=== PATIENT | female | born 1945 | race Caucasian/White ===

== ENCOUNTER 2022-08-08 13:45 | Outpatient (CLI) | payer MEDICARE, BC, SELFPAY ==
[2022-08-08 10:50] LABS: Albumin* 4.6 g/dL (3.3-5.0); Chloride* 103 mmol/L (96-114); Sodium* 140 mmol/L (135-149)
[2022-08-08 10:52] LABS: Carbon Dioxide* 33 mmol/L (20-32); Cholesterol* 261 mg/dL (90-199); Creatinine* 0.6 mg/dL (0.5-1.5); Estimated Glomerular Filt Rate 94 ml/min
[2022-08-08 10:53] LABS: Alanine Aminotransferase* 28 U/L (4-35); Alkaline Phosphatase* 73 U/L (40-150); Aspartate Amino Transferase* 29 U/L (12-35); Bilirubin Total* 0.7 mg/dL (0.1-1.5); Blood Urea Nitrogen* 17 mg/dL (7-30); Calcium* 9.5 mg/dL (8.4-10.6); Glucose* 88 mg/dL (60-115); Total Protein* 7.1 g/dL (6.0-8.3); Triglycerides* 123 mg/dL (40-149); Vitamin D 25 Hydroxy* 41 ng/mL (30-80)
[2022-08-08 10:54] LABS: HDL Cholesterol* 77 mg/dL (>=50); LDL Cholesterol Calculated 159 mg/dL (<100)
== END 2022-08-08 13:46 | disposition home or self-care (01) ==
PROVIDERS: PCP Family Medicine; Visit Provider Family Medicine
DX: Z00.00 Encounter for general adult medical examination without abnormal findings (principal); E78.5 Hyperlipidemia, unspecified; M85.80 Other specified disorders of bone density and structure, unspecified site
CPT/HCPCS: 80053; 80061; 82306

== ENCOUNTER 2023-08-22 08:26 | Outpatient (CLI) | payer MEDICARE, BC, SELFPAY ==
--- OUTSIDE RECORDS SUMMARY | 2023-08-29 09:17 | XMS_ITS | Clinical Summary ---
Author Name Unknown Organization [employer] [facility] [employer] Address [place], [place] [address] Care Team Providers Care Detailer Name Role Phone Kieran Mansfield MD Primary Care Provider [phone] Allergies No known active allergies Medications Medication Sig Dispensed Refills Start Date End Date Status calcium carbonate-vit D3, 600 mg-400 units, (CALCIUM-VITAMIN D) tablet Take 1 tablet by mouth once daily with a meal. 0 Active aspirin (ECOTRIN) 81 mg enteric coated tablet Take 81 mg by mouth once daily with a meal. 0 Active Social History Tobacco Use Types Packs/Day Years Used Date Smoking Tobacco: Never Assessed Sex and Gender Information Value Date Recorded Sex Assigned at Not on file Gender Identity Not on file Sexual Orientation Not on file Obstetrics History Last Filed Vital Signs Vital Sign Reading Time Taken Comments Blood Pressure 121/59 05/24/2015 7:27 PM CDT Pulse 112 05/24/2015 7:27 PM CDT Temperature 37.4 ??C (99.3 ??F) 05/24/2015 7:27 PM CD T Respiratory Rate 16 05/24/2015 2:14 PM CDT Oxygen Saturation 98% 05/24/2015 7:27 PM CDT Inhaled Oxygen Concentration - - Weight 50.8 kg (112 lb) 05/24/2015 2:14 PM CDT Height 165.1 cm (5' 5) 05/24/2015 2:14 PM CDT Body Mass Index 18.64 05/24/2015 2:14 PM CDT Plan of Treatment Health Maintenance Due Date Last Done Comments COVID-19 vaccine series (#1) 04[birth year]17/1946 Tdap 1958 Depression screening for age 12+ 1959 BMI (ht and wt on same day) for age 18+ 1965 Hepatitis C screening for age 18-79 1965 Tetanus booster 1967 Colonoscopy through age 75 1992 Lipids for age 45-75 1992 Zoster (shingles) series for age 50+ (1 of 2) 10/18/18 98 DEXA/DXA scan for age 65+ 2012 Pneumococcal series for age 65+ (1 of 1 - PCV) 013 Influenza for age 65+ 04/21/2023 Medical Devices Implanted Type Area Stiff Leg Operator Device Identifier Shelf Expiration Date Model / Serial / Lot [id number] sorting machine attendant Tissue 250cc [id number] [[id number]] Implanted:Qty: 1 on 11/20/2007 at [facility] Explanted:at [facility] (Quantity not on file) Right: Breast [employer] [id number] / [id number] Implanted:Qty: 1 on 11/20/2007 at [facility] Explanted:at [facility] (Quantity not on file) Right: Breast LIFECELL JW [id number] / [id number] / Description:STRATTICE RECON TISSUE MATRIX 5X16 [id number] 2implnt Mammary Gel 175cc [id number] [[id number]] Implanted:Qty: 1 on 03/11/2008 at [facility] Explanted:at [facility] (Quantity not on file) Right: Breast [employer] [id number] # / [id number] Advance Directives Documents on File Type Date Recorded Patient Demand Generation Manager Expl anation Healthcare Directive 02/12/2019 9:28 AM Latest Code Status on File Code Status Date Activated Date Inactivated Comments Full Code 08/10/2012 6:21 AM 08/10/2012 10:33 AM Code Status History Code Status Date Activated Date Inactivated Comments Full Code 03/11/2008 6:32 AM 03/11/2008 12:14 PM Full Code 11/20/2007 7:49 AM 11/22/2007 6:08 PM Care Teams Detailer Relationship Specialty Start Date End Date Kieran Mansfield MD [address] [place] [id number] PCP - General 10/24/07
--- OUTSIDE RECORDS SUMMARY | 2023-08-29 09:17 | XMS_ITS | Referral Summary ---
Author Name Unknown Organization [facility] Address [address] [place] [address] Care Team Providers Care Last Sorter Name Role Phone Fiona Noriega MD Primary Care Provider + Allergies No known active allergies Medications Medication Sig Dispensed Refills Start Date End Date Status calcium-vitamin D (CALCIUM 600 + D) 600-400 MG-UNIT per tablet Take 1 tablet by mouth daily 0 Active aspirin 81 MG chewable tablet Take 81 mg by mouth daily 0 Active Active Problems No known active problems Social History Tobacco Use Types Packs/Day Years Used Date Smoking Tobacco: Never Smokeless Tobacco: Never Alcohol Use Standard Drinks/Week Comments No 0 (1 standard drink = 0.6 oz pur e alcohol) Sex and Gender Information Value Date Recorded Sex Assigned at Not on file Gender Identity Not on file Sexual Orientation Not on file Last Filed Vital Signs Vital Sign Reading Time Taken Comments Blood Pressure 105/62 06/15/2017 8:34 AM CDT Pulse 89 02/02/2017 8:34 AM CDT Temperature 36.1 ??C (97 ??F) 06/15/2017 6:44 AM CDT Respiratory Rate 14 06/15/2017 8:34 AM CDT Oxygen Saturation 99% 06/15/2017 8:34 AM CDT Inhaled Oxygen Concentration - - Weight 49.9 kg (110 lb) 06/13/2017 11:00 AM CDT Height 166.4 cm (5' 5.5) 06/13/2017 11:00 AM CD T Body Mass Index 18.03 06/13/2017 11:00 AM CDT Plan of Treatment Not on file Medical Devices Implanted Type Area Deputy Assessor Device Identifier Shelf Expiration Date Model / Serial / Lot Eye Imp Iol Isauro Pcl Tecnis [id number] 18.0 Implanted:Qty : 1 on 02/02/2017 by Dmitriy Spann MD at [facility] Lens/Eye Implant Right: Eye [employer] 10/12/2020 ZCB00 18.0 / [id number] / Eye Imp Iol Isauro Pcl Tecnis Zcb00 18.5 Implanted:Qty : 1 on 06/15/2017 by Dmitriy Spann MD at [facility] Lens/Eye Implant Left: Eye [employer] OPT 12/31/2020 ZCB00 18.5 / [id number] / Care Teams Last Sorter Relationship Specialty Start Date End Date Fiona Noriega MD [facility] [address] [place] [address] PCP - General Family Practice 01/13/17
--- OUTSIDE RECORDS SUMMARY | 2023-08-29 09:17 | XMS_ITS | Encounter Summary ---
Author Name Unknown Organization [facility] Address [address] [place] [address] Care Team Providers Care Yield Engineer Name Role Phone Fiona Noriega MD Primary Care Provider + Encounter Details Date Type Department Care Team (Late st Contact Info) Description 11/20/[address] [address] Abstract, Provider ABB-NW: RIGHT MASTECTOMY (Primary Dx) Social History Tobacco Use Types Packs/Day Years Used Date Smoking Tobacco: Never Smokeless Tobacco: Never Alcohol Use Standard Drinks/Week Comments No 0 (1 standard drink = 0.6 oz pur e alcohol) Sex and Gender Information Value Date Recorded Sex Assigned at Not on file Gender Identity Not on file Sexual Orientation Not on file documented as of this encounter Plan of Treatment Not on file documented as of this encounter Visit Diagnoses Diagnosis ABB-NW: RIGHT MASTECTOMY- Primary documented in this encounter Care Teams Yield Engineer Relationship Specialty Start Date End Date Fiona Noriega MD [facility] [address] [place] [address] PCP - General Family Practice 01/13/17 documented as of this encounter
--- OUTSIDE RECORDS SUMMARY | 2023-08-29 09:17 | XMS_ITS | Encounter Summary ---
Author Name Unknown Organization [facility] Address [address], [place] [address] Care Team Providers Care Cutter Down Name Role Phone Fiona Noriega MD Primary Care Provider Encounter Details Date Type Department Care Team Description 11/21/2022 1:00 PM CDT Office Visit [facility] [address] [place] [address] Gurpreet Samayoa MD [address] [place] [address] Myopia of both eyes (Primary Dx); PCO (posterior capsular opacification), bilateral Social History Tobacco Use Types Packs/Day Years Used Date Smoking Tobacco: Unknown Tobacco Cessation:Counseling Given: Not Answered Sex and Gender Information Value Date Recorded Sex Assigned at Not on file Gender Identity Not on file Sexual Orientation Not on file documented as of this encounter Progress Notes * Gurpreet Samayoa MD - 11/21/2022 1:00 PM CDT Last saw this provider 11/12/21 Lynnette Wilkinson is a 77 y.o. old female here for her 1 year follow-up PCL OU with PCO left eye. Overall vision is stable. Pt feels glasses are becoming more yellow and does take glasses off to read. Visionis most problematic with reading. Patient denies prior refractive surgery. Denies pain and discomfort. PVD OU floaters mainly OD but no flashes. Glaucoma Medications: none Other Eye Medications: none Review of Systems Const: (-) ENT: (-) Pulm: (-) Cardio: (-) GI: (-) : (-) MS: (-) Skin: (-) Neuro: (-) Heme: (-) Assessment and Plan: PCO OS > OD Plan: discussed PCO and etiology and treatment Pt would like to have the left eye YAG done To Dr Pierce for YAG OS documented in this encounter Plan of Treatment Upcoming Encounters Date Type Department Care Team Description 12/05/2023 1:15 PM CDT Appointment [facility] [address] [place], [place] [phone] Keara Pierce MD [address] [place] [address] documented as of this encounter Visit Diagnoses Diagnosis Myopia of both eyes- Primary Myopia PCO (posterior capsular opacification), bilateral After-cataract, unspecified documented in this encounter Care Teams Cutter Down Relationship Specialty Start Date End Date Fiona Noriega MD [address] [place] [address] PCP - General Family Practice 04/23/21 documented as of this encounter
--- OUTSIDE RECORDS SUMMARY | 2023-08-29 09:17 | XMS_ITS | Clinical Summary ---
Author Name Unknown Organization [facility] Address [address] [place] [address] Care Team Providers Care Heel Burnisher Name Role Phone Fiona Noriega MD Primary Care Provider Source Comments You are receiving this document as you are listed as the primary care provider,follow-up provider, or the patient has been referred to you for consultation.This is in compliance with the Medicare and[facility] EHR Incentive Program,which states Providers who transition their patient to another setting of careor provider of care or refers their patient to another provider of care shouldprovide summary care record for each transition of care or referral. [facility] Allergies No known active allergies Medications Medication Sig Dispensed Refills Start Date End Date Status calcium carbonate-vitamin D 600-400 MG-UNIT tablet Take 1 Tablet by mouth daily with food. 0 Active omega-3 fatty acids (FISH OIL) 1000 MG capsule Take 2 g by mouth daily. 0 Active Active Problems Problem Noted Date Diagnosed Date PVD (posterior vitreous detachment), both eyes 0 04/16/2021 Myopia of both eyes 04/15/2021 Pseudophakia, both eyes 04/15/2021 Family History Medical History Relation Name Comments Cataract Father Cataract Mother Cataract Brother 1 Cataract Brother 2 Glaucoma Negative Family History Macular Degeneration Negative Family History Retinal Detachment Negative Family History Relation Name Status Comments Father Mother Brother 1 Brother 2 Alive Social History Tobacco Use Types Packs/Day Years Used Date Smoking Tobacco: Unknown Tobacco Cessation:Counseling Given: Not Answered Sex and Gender Information Value Date Recorded Sex Assigned at Not on file Gender Identity Not on file Sexual Orientation Not on file Plan of Treatment Upcoming Encounters Date Type Department Care Team Description 12/05/2023 1:15 PM CDT Appointment [facility] [address] [place] [address] Keara Pierce MD [address] [place] [address] Health Maintenance Due Date Last Done Comments Colon Cancer Screening Plan Due 1945 Hep C Screening (Preventive Services) 1945 Medicare Annual Wellness Visit 1945 Mammogram 1945 COVID-19 Vaccine (#1) 04/17/1946 Dexa 2012 Influenza (#1) 2023 06/02/2022, 05/21, 07/01/2020, Additional history exists DTaP/Tdap/Td (2 - Tdap) 09/20/2029 09/20/2019 Pneumococcal 65+ Yrs Completed 04/14/2016, 03/16/20 15 Zoster/Shingles Completed 08/16/2021, 05/06/2021 HepA Aged Out No longer eligi ble based on patient's age to complete this topic HepB Aged Out No longer eligi ble based on patient's age to complete this topic Hib Aged Out No longer eligi ble based on patient's age to complete this topic IPV (Polio) Aged Out No longer eligi ble based on patient's age to complete this topic MCV4 Aged Out No longer eligi ble based on patient's age to complete this topic Care Teams Heel Burnisher Relationship Specialty Start Date End Date Fiona Noriega MD [address] [place] [address] PCP - General Family Practice 04/23/21
--- OUTSIDE RECORDS SUMMARY | 2023-08-29 09:17 | XMS_ITS | Clinical Summary ---
Author Name Unknown Organization [facility] Address [address] [place] [address] Care Team Providers Care Process Development Chemist Name Role Phone Fiona Noriega MD Primary [...] on file Medical Devices Implanted Type Area Med Asst Device Identifier Shelf Expiration Date Model / Serial / Lot Eye Imp Iol Isauro Pcl Tecnis Zcb00 18.0 Implanted:Qty : 1 on 02/02/2017 by Dmitriy Spann MD at [facility] Lens/Eye Implant Right: Eye [employer] OPT 10/12/2020 ZCB00 18.0 / [id number] / Eye Imp Iol Isauro Pcl Tecnis Zcb00 18.5 Implanted:Qty : 1 on 06/15/2017 by Dmitriy Spann MD at [facility] Lens/Eye Implant Left: Eye [employer] OPT 12/31/2020 ZCB00 18.5 / [id number] / Care Teams Process Development Chemist Relationship Specialty Start Date End Date Fiona Noriega MD [facility] [address] [place] [address] PCP - General Family Practice 01/13/17
--- OUTSIDE RECORDS SUMMARY | 2023-08-29 09:17 | XMS_ITS | Encounter Summary ---
Author Name Unknown Organization [facility] Address [address] [place] [address] Care Team Providers Care Police Radio Dispatcher Name Role Phone Fiona Noriega MD Primary Care Provider Encounter Details Date Type Department Care Team Description 01/26/2023 10:45 AM CDT Office Visit [facility] [address] [place], [place] [phone] Keara Pierce MD [address] [place], [place] [phone] S/P YAG capsulotomy, left (Primary Dx) Social History Tobacco Use Types Packs/Day Years Used Date Smoking Tobacco: Unknown Sex and Gender Information Value Date Recorded Sex Assigned at Not on file Gender Identity Not on file Sexual Orientation Not on file documented as of this encounter Progress Notes * Keara Pierce MD - 01/26/2023 10:45 AM CDT Lynnette Wilkinson is a 77 y.o. old female here for post operative visit: 3+ week(s) left eye Capsulotomy (12-28-22). Vision: improved even before she left the building. Noticed floaters in OS 1 week after procedure. Not there anymore. Pain: None. Glaucoma Medications: none Other Eye Medications: none Assessment and Plan: 1. S/p left yag cap w/ improved VA 2. Right PCO is mild- observe Rtc 1 yr for dilation with Optom documented in this encounter Plan of Treatment Upcoming Encounters Date Type Department Care Team Description 12/05/2023 1:15 PM CDT Appointment [facility] [address] [place] [address] Keara Pierce MD [address] [place] [address] documented as of this encounter Visit Diagnoses Diagnosis S/P YAG capsulotomy, left- Primary documented in this encounter Care Teams Police Radio Dispatcher Relationship Specialty Start Date End Date Fiona Noriega MD [address] [place] [address] PCP - General Family Practice 04/23/21 documented as of this encounter
--- OUTSIDE RECORDS SUMMARY | 2023-08-29 09:17 | XMS_ITS | Encounter Summary ---
Author Name Unknown Organization [facility] Address [address] [place] [address] Care Team Providers Care Bi Tri Operator Name Role Phone Fiona Noriega MD Primary Care Provider Encounter Details Date Type Department Care Team Description 12/28/2022 11:00 AM CDT Office Visit [facility] [address] [place], [place] [phone] Keara Pierce MD [address] [place], [place] [phone] PCO (posterior capsular opacification), left (Primary Dx) Social History Tobacco Use Types Packs/Day Years Used Date Smoking Tobacco: Unknown Sex and Gender Information Value Date Recorded Sex Assigned at Not on file Gender Identity Not on file Sexual Orientation Not on file documented as of this encounter Progress Notes * Keara Pierce MD - 12/28/2022 11:00 AM CDT Lynnette Wilkinson is a 77 y.o. old female here for consultation requested by Dr. Samayoa. Consult for possible Yag cap OS for PCO. Pt has noticed increasing clouding of the left eye more than right over the last year. Glaucoma Medications: none Other Eye Medications: none Review of Systems Const: (-) ENT: (-) Pulm: (-) Cardio: (-) GI: (-) : (-) MS: (-) Skin: (-) Neuro: (-) Heme: (-) Assessment and Plan: 1. PCO OU- L>R. Discussed yag cap for left eye. The RBA of the procedure were discussed with thepatient who voiced understanding and agrees to proceed. Rtc 3-4 weeks for va, iop Procedure: Capsulotomy with YAG laser left eye Description of procedure: Risks, benefits, and alternatives of the procedure were discussed and thepatient gave consent for the procedure. The patient was taken to the laser suite. A topical anesthetic drop, an apraclonidine drop were each placed on operative eye. Laser applied to posterior capsule to create central opening. Laser settings: 2.0 mJ, 13 shots documented in this encounter Plan of Treatment Upcoming Encounters Date Type Department Care Team Description 12/05/2023 1:15 PM CDT Appointment [facility] [address] [place] [address] Keara Pierce MD [address] [place] [address] documented as of this encounter Visit Diagnoses Diagnosis PCO (posterior capsular opacification), left- Primary After-cataract, unspecified documented in this encounter Care Teams Bi Tri Operator Relationship Specialty Start Date End Date Fiona Noriega MD [address] [place] [address] PCP - General Family Practice 04/23/21 documented as of this encounter
== END 2023-08-22 08:27 | disposition home or self-care (01) ==
LOC: NFLDREF 08-29 09:15
PROVIDERS: PCP Family Medicine; Referring Provider Family Medicine; Visit Provider Family Medicine
DX: Z00.00 Encounter for general adult medical examination without abnormal findings (principal); E78.5 Hyperlipidemia, unspecified; M85.80 Other specified disorders of bone density and structure, unspecified site; Z13.1 Encounter for screening for diabetes mellitus
CPT/HCPCS: 80061; 82306; 82947

== ENCOUNTER 2024-08-28 07:57 | Outpatient (CLI) | payer MEDICARE, BC, SELFPAY | END 2024-08-28 07:58 | disposition home or self-care (01) | LOC: NFLDREF 08-31 13:21 | PROVIDERS: PCP Family Medicine; Referring Provider Family Medicine; Visit Provider Family Medicine | DX: E78.5 Hyperlipidemia, unspecified (principal); R53.83 Other fatigue; M81.0 Age-related osteoporosis without current pathological fracture; M85.80 Other specified disorders of bone density and structure, unspecified site | CPT/HCPCS: 80053; 80061; 82306 ==

== ENCOUNTER 2024-12-24 01:08 | Emergency (ER) | payer MEDICARE, BC, SELFPAY ==
--- OUTSIDE RECORDS SUMMARY | 2024-12-24 01:11 | XMS_ITS | Encounter Summary ---
Author Organization [facility] Address [address] [place] [address] Care Team Providers Care Window Display Designer Name Role Phone Fiona Noriega MD Primary Care Provider + Encounter Details Date Type Department Care Team (Late st Contact Info) Description 11/20/[address] [address] Abstract, Provider ABB-NW: RIGHT MASTECTOMY (Primary Dx) Social History Tobacco Use Types Packs/Day Years Used Date Smoking Tobacco: Never Smokeless Tobacco: Never Alcohol Use Standard Drinks/Week Comments No 0 (1 standard drink = 0.6 oz pur e alcohol) Comments Unknown Sex and Gender Information Value Date Recorded Sex Assigned at Not on file Legal Sex Female 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 [address] [place] [address] PCP - General Family Practice 01/13/17 documented as of this encounter
--- OUTSIDE RECORDS SUMMARY | 2024-12-24 01:11 | XMS_ITS | Clinical Summary ---
Author Organization [facility] Address [address] [place] [address] Care Team Providers Care Steam Drier Operator Name Role Phone Fiona Noriega MD Primary Care Provider + Allergies No known active allergies Medications calcium-vitamin D (CALCIUM 600 + D) 600-400 MG-UNIT per tablet Take 1 tablet by mouth daily Active aspirin 81 MG chewable tablet Take 81 mg by mouth daily Active Active Problems No known active problems Social History Tobacco Use Types Packs/Day Years Used Date Smoking Tobacco: Never Smokeless Tobacco: Never Alcohol Use Standard Drinks/Week Comments No 0 (1 standard drink = 0.6 oz pur e alcohol) Comments Unknown Sex and Gender Information Value Date Recorded Sex Assigned at Not on file Legal Sex 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 Gender Identity Not on file Sexual Orientation Not on file Last Filed Vital Signs Vital Sign Reading Time Taken Comments Blood Pressure 105/62 06/15/2017 8:34 AM CDT Pulse 89 02/02/2017 8:34 AM CDT Temperature 36.1 C (97 F) 06/15/2017 6:44 AM CDT Respiratory Rate 14 06/15/2017 8:34 AM CDT Oxygen Saturation 99% 06/15/2017 8:34 AM CDT Inhaled Oxygen Concentration - - Weight 49.9 kg (110 lb) 06/13/2017 11:00 AM CDT Height 166.4 cm (5' 5.5) 06/13/2017 11:00 AM CD T Body Mass Index 18.03 06/13/2017 11:00 AM CDT Plan of Treatment Not on file Medical Devices Implanted Type Area Box Order Person Device Identifier Shelf Expiration Date Model / Serial / Lot Eye Imp Iol Isauro Pcl Tecnis Zcb00 18.0 Implanted:Qty : 1 on 02/02/2017 by Dmitriy Spann MD at [facility] Lens/Eye Implant Right: Eye ADV[employer]ED MEDICAL OPT 10/12/2020 ZCB00 18.0 / [id number] / Eye Imp Iol [place] Pcl Tecnis Zcb00 18.5 Implanted:Qty : 1 on 06/15/2017 by Dmitriy Spann MD at [facility] Lens/Eye Implant Left: Eye ADVANCED MEDICAL OPT 12/31/2020 ZCB00 18.5 / [id number] / Insurance MEDICARE [facility] BLUE Care Teams Steam Drier Operator Relationship Specialty Start Date End Date Fiona Noriega MD [facility] [address] [place] [address] PCP - General Family Practice 01/13/17
--- OUTSIDE RECORDS SUMMARY | 2024-12-24 01:11 | XMS_ITS | Clinical Summary ---
Author Organization [facility] Address [address] [place] [address] Care Team Providers Care Fish Smoker Name Role Phone Fiona Noriega MD Primary Care Provider Source Comments You are receiving this document as you are listed as the primary care provider,follow-up provider, or the patient has been referred to you for consultation.This is in compliance with the Medicare and[facility] EHR Incentive Program,which states Providers who transition their patient to another setting of careor provider of care or refers their patient to another provider of care shouldprovide summary care record for each transition of care or referral. [facility] Allergies No known active allergies Medications calcium carbonate-vitami n D 600-400 MG-UNIT tablet Take 1 Tablet by mouth daily with food. Active omega-3 fatty acids (FISH OIL) 1000 MG capsule Take 2 g by mouth daily. Active Active Problems Problem Noted Date Diagnosed [...] Tobacco: Unknown Tobacco Cessation:Counseling Given: Not Answered Comments Unknown Sex and Gender Information Value Date Recorded Sex Assigned at Not on file Legal Sex Female 4:29 AM CDT Gender Identity Not on file Sexual Orientation Not on file Plan of Treatment Upcoming Encounters Date Type Department Care Team (Late st Contact Info) Description 12/25/2024 3:15 PM CDT Appointment [facility] at [facility] [address] [place] [address] Keara Pierce MD [address] [place] [address] Health Maintenance Due Date Last Done Comments Hep C Screening (Preventive Services) 1945 Medicare Annual Wellness Visit 1945 Dexa 2012 RSV Vaccine (1 - 1-dose 75+ series) 2022 COVID-19 Vaccine ( season) 2024 01/25/2022, 06/15/2021, 10/27/2020, Additional history exists Influenza Vaccine (Season Ended) 2025 06/02/2022, 06/08/2021, 07/01/2020, Additional history exists DTaP/Tdap/Td Vaccine (2 - Tdap) 09/20/2029 09/20/2019 Pneumococcal Vaccine 50+ Yrs Completed 04/14/2016, 03/16/2015 Zoster/Shingles Vaccine Completed 08/16/2021, 05/06 HepA Vaccine Aged Out No longer eligi ble based on patient's age to complete this topic HepB Vaccine Aged Out No longer eligi ble based on patient's age to complete this topic Hib Vaccine Aged Out No longer eligi ble based on patient's age to complete this topic IPV (Polio) Vaccine Aged Out No longe r eligible based on patient's age to complete this topic MCV4 Vaccine Aged Out No longer eligi ble based on patient's age to complete this topic Meningococcal B Vaccine Aged Out No l onger eligible based on patient's age to complete this topic Insurance [facility] BLUE MEDICARE MANAGED CARE BS Care Teams Fish Smoker Relationship Specialty Start Date End Date Fiona Noriega MD [address] [place] [address] PCP - General Family Practice 04/23/21
[2024-12-24 01:14] VITALS: BP 142/64; PULSE 119; RESP 16; TEMP 37.8; O2SAT 93; BMI 18.0
[2024-12-24 01:57] LABS: PCR FLU A Negative PCR FLU A (Negative); PCR FLU B Negative PCR FLU B (Negative); PCR RSV Negative PCR RSV (Negative); SARS PCR* Negative SARS-CoV-2 (Negative)
[2024-12-24] MEDS: DOXYCYCLINE HYCLATE 100 MG PO (02:22)
--- NOTE | 2024-12-24 02:22 | ED_ITS ---
HPI - General Adult General Chief complaint: Cough Stated complaint: coughing, fever, back pain Time Seen by Provider: 12/24/24 02:00 Source: patient Mode of arrival: ambulatory Limitations: no limitations History of Present Illness HPI narrative: 79-year-old female presents to the ED in the wee hours with 6-7 days of cough, fatigue. Patient returned tonight from a trip to [facility]. She was very active during that trip including walking around town, visiting several museum is a, etc.. She reports that she has continued to feel unwell, has not tried any home treatments or sought medical care while away. No obvious illness exposures. No history of immunosuppression, chemotherapy or any major chronic disease. Denies prior history of COPD. She reports that she has had pneumonia a few times within the last 10 years including 1 that required hospitalization which we do not have records for. Based on her description, it does not sound as though there was intubation. Lifetime nonsmoker. Notes significant fatigue, dry cough. Denies other systemic complaints associated with this illness besides mild sore throat that started at the onset of illness. Reports that her past medical history is benign, no major long-term health problems. Takes a calcium supplement but no other regular supplements. No known drug allergies. Nonsmoker. ROS is notable for the HEENT and respiratory and generalized complaints as above, otherwise she denies times 12 systems today. Related Data Home Medications ?Medication ?Instructions ?Recorded ?Confirmed calcium carbonate (Calcium 600) 600 mg PO QDAY 08/25/22 09/03/24 cholecalciferol (vitamin D3) 10 10 mcg PO QDAY 08/25/22 09/03/24 mcg (400 unit) capsule Previous Rx's ?Medication ?Instructions ?Recorded doxycycline hyclate 100 mg tablet 100 mg PO BID #20 tabs 12/24/24 Allergies Allergy/AdvReac Type Severity Reaction Status Date / Time No Known Drug Allergies Allergy Verified 09/03/24 10:03 [facility] Medical History Health care directive on file ?Z78.9 - Other specified health status (ICD-10) History of renal calculi ?Z87.442 - Personal history of urinary calculi (ICD-10) Dyslipidemia ?E78.5 - Hyperlipidemia, unspecified (ICD-10) Dry skin dermatitis ?L85.3 - Xerosis cutis (ICD-10) Eczema ?L30.9 - Dermatitis, unspecified (ICD-10) Optic neuropathy (2008) ?H46.9 - Unspecified optic neuritis (ICD-10) Knee torn cartilage, right ?S83.206A - Unspecified tear of unspecified meniscus, current injury, right knee, initial encounter (ICD-10) Basal cell carcinoma ?C44.91 - Basal cell carcinoma of skin, unspecified (ICD-10) History of breast cancer (2008) ?Z85.3 - Personal history of malignant neoplasm of breast (ICD-10) Osteopenia (2016) ?M85.80 - Other specified disorders of bone density and structure, unspecified site (ICD-10) Surgical History Cataract extraction status of right eye (2016) ?Z98.41 - Cataract extraction status, right eye (ICD-10) History of tonsillectomy (~1956) ?Z90.89 - Acquired absence of other organs (ICD-10) History of bilateral breast implants (2007) ?Z98.82 - Breast implant status (ICD-10) History of mastectomy (2007) ?Z90.10 - Acquired absence of unspecified breast and nipple (ICD-10) Family History Mother Bladder cancer Father CHF (congestive heart failure), Onset Age: 95 Brother Depression Social History Narrative: , retired public health RN, 2 adult children nonsmoker does not drink alcohol walks [id number], also light weights for upper body Lives with adult son, and 4 year granddaughter What is your current living situation?: I presently have a place to live Problems where you live: no known problems In the past 12 months, utilities in danger of being shut off: no In past 12 months, lack of transportation kept you from medical appts, meetings, work, or getting things needed for daily living: no In the past 12 mos, have been you worried that your food would run out before you had money to buy more?: never true In the past 12 mos, the food you bought just didn't last and you didn't have money to buy more?: never true How often does anyone, including family, friends and others, physically hurt you : never How often does anyone, including family, friends and others, insult or talk down to you: never How often does anyone, including family, friends and others, threaten you with harm: never How often does anyone, including family, friends and others, scream or curse at you: never service: No Exam Const: Vital Signs, click to edit/add: Vital Signs - 24 hr 12/24/24 01:14 Temperature 100.0 F H Pulse Rate [Pulse Oximeter] 119 H Respiratory Rate 16 Blood Pressure [Ri ght Upper Arm] 142/64 H Pulse Oximetry 93 Oxygen Delivery Me thod Room Air Documenting provider has reviewed patient's vital signs: yes Common normals: no apparent distress General appearance: well kempt Other: Friendly and cooperative. Good historian. Appears well nourished, well hydrated, nontoxic. Thin, but appears active. HENMT: Common normals: normocephalic and moist oral mucous membranes Head and scalp: normocephalic Face and sinus: normal facial exam Mouth: oral and palatal mucosa normal Eye: Common normals: conjunctivae normal General eye: normal appearance of both eyes Conjunctiva: conjunctiva(e) normal Neck & C-Spine: Common normals: full ROM and no lymphadenopathy General: normal visual inspection Resp: Common normals: normal respiratory effort and no use of accessory muscles Effort & inspection: able to speak in complete sentences Other: No significant prolongation of expiration. Normal respiratory effort. Bilateral coarse end-expiratory crackles noted. Normal inspiration. Right is slightly greater than left. No wheeze. No transmitted upper airway sounds. Cardio: Common normals: regular rate, regular rhythm, S1 normal heart sound, S2 normal heart sound and no murmurs Rate: regular rate Rhythm: regular rhythm Heart sounds: S1 normal and S2 normal Other: Repeat heart rate is in the mid 90s for me. GI: Common normals: Normal to inspection, nondistended, normoactive bowel sounds present, soft to palpation, non-tender, no hepatosplenomegaly and no masses Palpation: soft and no hepatosplenomegaly Back & Pelvis: Other: Moderate kyphosis. Extremity: Common normals: normal capillary refill Psych: Common normals: speech normal Appearance: well kempt Attitude: engaged Speech: normal speech Mood and affect: euthymic mood Insight: insight good Judgement: judgment good Skin: Common normals: no rashes or lesions noted General skin exam: no rashes or lesions noted Course Course ED Course: 79-year-old female with low-grade fever, mild initial tachycardia that has improved without treatment and history suspicious for upper respiratory infection versus pneumonia. Differential diagnosis also including pulmonary embolism, congestive heart failure, bronchitis, other respiratory pathology, multiple other viral illness these. Exam is not suggestive of acute cardiac process, prodromal symptoms of illness and lack of dyspnea on exertion do dissuade from other diagnoses. Exam is highly suspicious for pneumonia and with her history, she is high risk for this. Viral swabs are collected and these are negative, making this more likely to be bacterial. Based on her history, kyphosis and low-grade fever, I do recommend antibiotic management. Rationale for not ordering blood work and chest x-rays discussed as she would qualify for impaired treatment based on guidelines. Will treat with doxycycline 100 mg p.o. b.i.d.. First dose given here in the ED. Counseled on symptomatic treatment as needed with Tylenol and ibuprofen, alarm symptoms reviewed warrant ED presentation. Counseled patient that unfortunately can take a couple days for antibiotics to kick in to make someone feel better but I would expect her to be fever free in 3 days and for her to be feeling at least a 3rd better. Continue to push fluids. Written instructions provided. Vital Signs Vital signs: Initial Vital Signs Temperature 100.0 F H 12/24/24 01:14 Temperature Source Temporal Artery Scan 12/24/24 01:14 Pulse Rate 119 H 12/24/24 01:14 Respiratory Rate 16 12/24/24 01:14 Blood Pressure 142/64 H 12/24/24 01:14 Blood Pressure Mean 90 12/24/24 01:14 Blood Pressure Position Sitting 12/24/24 01:14 Pulse Oximetry 93 12/24/24 01:14 Oxygen Delivery Method Room Air 12/24/24 01:14 Vital Signs Temperature 100.0 F H 12/24/24 01:14 Pulse Rate 119 H 12/24/24 01:14 Respiratory Rate 16 12/24/24 01:14 Blood Pressure 142/64 H 12/24/24 01:14 Pulse Oximetry 93 12/24/24 01:14 Oxygen Delivery Method Room Air 12/24/24 01:14 Temperature 100.0 F H 12/24/24 01:14 Pulse Rate 119 H 12/24/24 01:14 Respiratory Rate 16 12/24/24 01:14 Blood Pressure 142/64 H 12/24/24 01:14 Pulse Oximetry 93 12/24/24 01:14 Oxygen Delivery Method Room Air 12/24/24 01:14 Medications Administered Medications: Generic Name Dose Route Start Last Admin Trade Name Elizabeth PRN Reason Stop Dose Admin Doxycycline Hyclate 100 mg 12/24/24 02:15 12/24/24 02:22 Doxycycline Hyclate 100 Mg PO 12/24/24 02:16 100 mg ONCE ONE Administration Medical Decision Making Lab Data Lab results reviewed: Yes I reviewed the patient's lab results Lab results narrative: Viral swabs negative. Labs: Lab Results 12/24/24 Range/Units 01:15 SARS-CoV-2 (PCR) Negative SARS-CoV-2 (Negative) Influenza Type A (PCR) Negative PCR FLU A (Negative) Influenza Type B (PCR) Negative PCR FLU B (Negative) RSV (PCR) Negative PCR RSV (Negative) Discharge Plan Discharge Clinical Impression: Community acquired pneumonia Patient Disposition: Home w/ Parent or Adult Condition: Stable Instructions: Community Acquired Pneumonia (DC) Additional Instructions: As we discussed, your exam is suspicious for pneumonia. Unfortunately people that have had this in the past can have some mild chronic damage to their lungs which does make them more susceptible to this in the future. Your respiratory rate, blood pressure and oxygen levels are all normal, indicating that this is not a severe case. Since I can clearly here the pneumonia on exam, I do not recommend chest x-ray. Empiric treatment would be indicated. I have started you on doxycycline, a common 1st line antibiotic for pneumonia. It is dose twice daily. You were given your 1st dose here in the emergency room. You will take 1 pill 2 times daily for 10 days. Your next dose will be due this afternoon at around 2:30 a.m.. It is okay to wait to take your Monday morning dose at a reasonable wake-up time to reset to a better twice daily schedule. This antibiotic does have a high success rate but pneumonias can sometimes worsen before the antibiotics can fully kick in. As discussed, I would hope that your fever would be gone in you would be feeling about a 3rd better after about 3 days of treatment. If you become severely short of breath to the point review cannot care for your self, have severe weakness, other signs of complication, you should return to the emergency department. Cough syrups do not tend to be helpful. It is okay to use Tylenol 650 mg every 6 hours and or ibuprofen 400 mg every 6 hours as needed for fever, body aches and general discomfort. Continue to push fluids and try to remain active around the house so that you are using your lungs, reducing your risk of complication. Activity Level: Activity as Tolerated Discharge Diet: Regular Prescriptions: New doxycycline hyclate 100 mg tablet 100 mg PO BID Qty: 20 0RF No Action calcium carbonate [Calcium 600] 600 mg calcium (1,500 mg) tablet 600 mg PO QDAY cholecalciferol (vitamin D3) 10 mcg (400 unit) capsule 10 mcg PO QDAY Follow Up/Referrals: Fiona Noriega MD [Primary Care Provider] - Stand Alone Forms: ClassBug Info Instructions
--- OUTSIDE RECORDS SUMMARY | 2024-12-24 02:29 | XMS_ITS | Clinical Summary ---
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 Gender Identity Not on file Sexual Orientation [...] on file Medical Devices Implanted Type Area Hydraulic Dredge Operator Device Identifier Shelf Expiration Date Model / Serial / Lot Eye Imp Iol Isauro Pcl Tecnis [id number] 18.0 Implanted:Qty : 1 on 02/02/2017 by Dmitriy Spann MD at [facility] Lens/Eye Implant Right: Eye [employer]ED [employer] OPT 10/12/2020 ZCB00 18.0 / [id number] / Eye Imp Iol [place] Pcl Tecnis Zcb00 18.5 Implanted:Qty : 1 on 06/15/2017 by Dmitriy Spann MD at [facility] Lens/Eye Implant Left: Eye ADVANCED [employer] OPT 12/31/2020 ZCB00 18.5 / [id number] / Insurance MEDICARE [facility] [place] BL[employer] Care Teams Instructor Watch Assembly Relationship Specialty Start Date End Date Fiona Noriega MD [facility] [address] [place] [address] PCP - General Family Practice 01/13/17
--- OUTSIDE RECORDS SUMMARY | 2024-12-24 02:29 | XMS_ITS | Clinical Summary ---
Author Organization [facility] [facility] Address [address] [place] [id number] Care Team Providers Care Rehab Spec Name Role Phone Kieran Mansfield MD Primary Care Provider Unava ilable Allergies No known active allergies Medications calcium carbonate-vit D3, 600 mg-400 units, (CALCIUM-VITAMIN D) tablet Take 1 tablet by mouth once daily with a meal. Active aspirin (ECOTRIN) 81 mg enteric coated tablet Take 81 mg by mouth once daily with a meal. 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 Gender Identity Not on file Sexual Orientation Not on file Obstetrics History Last Filed Vital Signs Vital Sign Reading Time Taken Comments Blood Pressure 121/59 05/24/2015 7:27 PM CDT Pulse 112 05/24/2015 7:27 PM CDT Temperature 37.4 C (99.3 F) 05/24/2015 7:27 PM CDT Respiratory Rate 16 05/24/2015 2:14 PM CDT Oxygen Saturation 98% 05/24/2015 7:27 PM CDT Inhaled Oxygen Concentration - - Weight 50.8 kg (112 lb) 05/24/2015 2:14 PM CDT Height 165.1 cm (5' 5) 05/24/2015 2:14 PM CDT Body Mass Index 18.64 05/24/2015 2:14 PM CDT Plan of Treatment Health Maintenance Due Date Last Done Comments Tdap 1958 Depression screening for age 12+ 1959 BMI (ht and wt on same day) for age 18+ 1965 Hepatitis C screening for age 18-79 1965 Tetanus booster 1967 Pneumococcal series for age 50+ (1 of 1 - PCV) 998 Zoster (shingles) series for age 50+ (1 of 2) 10/18/18 98 DEXA/DXA scan for age 65+ 2012 RSV vaccine for adults or pr egnancy (1 - 1-dose 75+ series) 2022 COVID-19 vaccine series ( - season) Influenza Vaccine (Season Ended) 2025 Medical Devices Implanted Type Area Vault Keeper Device Identifier Shelf Expiration Date Model / Serial / Lot [id number] or [id number] Tissue 250cc [id number] [[id number]] Implanted:Qty: 1 on 11/20/2007 at [facility] Explanted:at [facility] (Quantity not on file) Right: Breast [employer] [id number] / [id number] Implanted:Qty: 1 on 11/20/2007 at [facility] Explanted:at [facility] (Quantity not on file) Right: Breast LIFECE[employer] JW [id number] / [id number] / Description:STRATTICE RECON TISSUE MATRIX 5X16 [id number] 2implnt Mammary Gel 175cc [id number] [[id number]] Implanted:Qty: 1 on 03/11/2008 at [facility] Explanted:at [facility] (Quantity not on file) Right: Breast [employer]PL[employer] [id number] # / [id number] Insurance MEDICARE PART B HB ONLY [place] MR PB ONLY [place] HB ONLY Advance Directives Documents on File Type Date Recorded Patient Hospital Sales Representative Expl anation Healthcare Directive 02/12/2019 9:28 AM * Full Code (Latest Code Status on File) Date Activated Date Inactivated Comments 08/10/2012 6:21 AM 08/10/2012 10:33 AM * Full Code Date Activated Date Inactivated Comments 03/11/2008 6:32 AM 03/11/2008 12:14 PM * Full Code Date Activated Date Inactivated Comments 11/20/2007 7:49 AM 11/22/2007 6:08 PM Care Teams Rehab Spec Relationship Specialty Start Date End Date Kieran Mansfield MD PCP - General 10/24/07
--- OUTSIDE RECORDS SUMMARY | 2024-12-24 02:29 | XMS_ITS | Clinical Summary ---
Author Organization [facility] Address [address] [place] [address] Care Team Providers Care Prepress Proofer Name Role Phone Fiona Noriega MD Primary Care Provider Source Comments You are receiving this document as you are listed as the primary care provider,follow-up provider, or the patient has been referred to you for consultation.This is in compliance with the Medicare and[facility] EHR Incentive Program,which states Providers who [...] 12/25/2024 3:15 PM CDT Appointment Ophthalmology at [facility] [address] [place] [address] Keara Pierce MD [address] [place] [address] Health Maintenance Due Date Last Done Comments [...] patient's age to complete this topic Insurance [facility] [place] [address] MEDICARE MANAGED CARE BS Care Teams Prepress Proofer Relationship Specialty Start Date End Date Fiona Noriega MD [address] [place] [address] PCP - General Family Practice 04/23/21
--- OUTSIDE RECORDS SUMMARY | 2024-12-24 02:29 | XMS_ITS | Encounter Summary ---
Author Organization [facility] Address [address] [place] [address] Care Team Providers Care Software Quality Assurance Analyst Name Role Phone Fiona Noriega MD Primary Care Provider + Encounter Details Date Type Department Care Team (Late st Contact Info) Description 11/20/[address] [id number] Abstract, Provider ABB-NW: RIGHT MASTECTOMY (Primary Dx) Social History Tobacco Use Types Packs/Day Years Used Date Smoking Tobacco: Never Smokeless Tobacco: Never Alcohol Use Standard Drinks/Week Comments No 0 (1 standard drink = 0.6 oz pur e alcohol) Comments Unknown Sex and Gender Information Value Date Recorded Sex Assigned at Not on file 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
[2024-12-24 02:32] VITALS: PULSE 102; RESP 16; O2SAT 95
== END 2024-12-24 02:41 | disposition home or self-care (01) ==
LOC: ED 02:26
PROVIDERS: Emergency Provider Family Medicine; PCP Family Medicine
DX: J18.9 Pneumonia, unspecified organism (principal); R00.0 Tachycardia, unspecified; R53.83 Other fatigue; R50.9 Fever, unspecified
CPT/HCPCS: 87631; 99283; 99284; M0243; A9270